=== PATIENT | female | born 1995 | race Caucasian/White ===

== ENCOUNTER → 2016-04-02 | Outpatient (CLI) | payer OTHER ==
--- NOTE | 2016-04-02 11:34 | US ---
Limited Right Upper Quadrant Ultrasound History: Right upper quadrant pain. Comparison: None available. Findings: The liver echogenicity is upper normal with normal contour and no focal hepatic masses. The re is no intrahepatic biliary dilatation. The common bile duct measures 4 mm and is normal. The gallb ladder is normal. The right kidney measures 11.2 cm and has normal echotexture and contour without hy dronephrosis. The visible aorta is normal caliber. The visible portions of the pancreas are normal w ith limited visualization of the pancreatic head and tail. Impression: Normal right upper quadrant ultrasound.
== END ==
LOC: FIMAGING 10:16
PROVIDERS: ATTEND Internal Medicine
DX: R93.2 Abnormal findings on diagnostic imaging of liver and biliary tract (principal)